=== PATIENT | female | born 1985 | race Caucasian/White ===

== ENCOUNTER 2018-11-28 15:59 | Emergency (ER) | payer OTHER ==
[~2018-11-28] VITALS: Ht 157.5 cm; Wt 85.8 kg
--- NOTE | 2018-11-28 16:27 | NUR ---
C/O FALL AT WORK TODAY. PT REPORTS BUMPING INTO [employer] WORK[employer] AND FALLING TO HER KNEES. DENIES HITTING HER ABDOMEN OR HEAD, DENIES LOC, PT REPORTS SHARP CONSTANT LOWER BACK AT 5/10. PT 21 WEEKS , LMP 06/30/18, DAWN 04/06/19, . HEART TONES 150BPM LLQ. BED IN LOW POSITION, SIDE RAIL UP X1.
--- NOTE | 2018-11-28 17:53 | NUR ---
PT RESTING IN BED, NO NEW NEEDS AT THIS TIME.
[2018-11-28 18:28] VITALS: BP 126/89
--- NOTE | 2018-11-28 18:28 | NUR ---
Patient discharged with v/s stable. Written and verbal after care instructions given and explained. Patient verbalized understanding. Ambulatory with steady gait. All questions addressed prior to discharge. Advised to follow up with PMD.
== END 2018-11-28 18:28 | disposition home or self-care (01) ==
LOC: MED 15:59
DX: O9A.212 Injury, poisoning and certain other consequences of external causes complicating pregnancy, second trimester (principal); M54.5 Low back pain; Z3A.21 21 weeks gestation of pregnancy; Z88.8 Allergy status to other drugs, medicaments and biological substances; W19.XXXA Unspecified fall, initial encounter; Y93.89 Activity, other specified; Y92.89 Other specified places as the place of occurrence of the external cause; Y99.0 Civilian activity done for income or pay
CPT/HCPCS: 99283